=== PATIENT | female | born 1995 | race African-American/Black ===

== ENCOUNTER 2022-09-06 21:06 | Emergency (ER) | payer MEDICAID, SELFPAY ==
--- NOTE | ~2022-09-06 | CT_ITS ---
EXAMINATION: CTA chest PE protocol DATE: 09/07/2022 01:17 INDICATION: Chest pain and shortness of breath, tachycardia TECHNIQUE: Computed tomography angiography (CTA) of the chest was performed with 100 mL Omnipaque-350 intravenous contrast timed to evaluate the pulmonary arteries. Coronal maximum intensity projection 3D-reconstructions were created by the technologist. The dose-length product (DLP) was 525.15 mGy-cm. Automated exposure control and iterative reconstruction technique were employed. COMPARISON: None. FINDINGS: Respiratory motion artifact significantly degrades the examination. No central pulmonary em bolus is identified. Cardiomegaly is noted. No pleural effusion or pneumothorax. No definite airspace opacities are identified. The visualized osseous structures are unremarkable. A cardiac pacemaker is implanted in the left axilla with its lead coursing in the anterior chest wall overlying the heart. IMPRESSION: 1. No central pulmonary embolus identified, examination significantly limited by respiratory motion a rtifact. 2. Cardiomegaly. Reviewed, dictated and finalized at location A. TECH IMPRESSION: 1. No central pulmonary embolus identified, examination significantly limited b y respiratory motion artifact. 2. Cardiomegaly.
--- NOTE | ~2022-09-06 | XR_ITS ---
EXAMINATION: XR chest 1V DATE: 09/06/2022 22:06 INDICATION: Chest pain. TECHNIQUE: A single frontal view of the chest was obtained. COMPARISON: None. FINDINGS: There is no pneumonia, pleural effusion, or pneumothorax. Cardiomegaly is noted. An implant ed defibrillator is noted. IMPRESSION: 1. Cardiomegaly. Reviewed, dictated and finalized at location A. CELL TECHNICIAN IMPRESSION: 1. Cardiomegaly.
--- NOTE | 2022-09-06 21:12 | ECG_ITS ---
Measurements Intervals [place] Rate: 98 P: 56 WI: 156 QRS: 59 QRSD: 119 T: 45 QT: 340 QTc: 436 Interpretive Statements SINUS RHYTHM INCOMPLETE LEFT BUNDLE BRANCH BLOCK BORDERLINE ST-T WAVE ABNORMALITY- INF/LAT LEADS BASELINE ARTIFACT- I, II, AVR ABNORMAL ECG NO PREVIOUS ECG AVAILABLE FOR COMPARISON Electronically Signed On 09-07-2022 6:43:56 ASSOCIATE DIRECTOR FINANCIAL AID by Zeus Almazan D.O.
[2022-09-06 21:14] VITALS: BP 116/76; PULSE 99; RESP 18; TEMP 36.2; O2SAT 96
[2022-09-06 23:28] VITALS: PULSE 112; RESP 21; O2SAT 92
[2022-09-06 23:30] VITALS: PULSE 108; RESP 17; O2SAT 93
--- NOTE | 2022-09-06 23:37 | ED.CHESTPAIN ---
HPI - Chest Pain General Chief Complaint: Chest Pain <Zoe Caballero PA-C - Last Filed: 09/07/22 15:32> Stated Complaint: Chest pn x 2 days, NSR <Zoe Caballero PA-C - Last Filed: 09/07/22 15:32> Time Seen by Provider: 09/06/22 23:26 <Zoe Caballero PA-C - Last Filed: 09/07/22 15:32> History of Present Illness HPI narrative: Patient is a 27-year-old female with a history of -induced CHF here for evaluation of chest pain and shortness of breath for the past 2 days. Patient states the chest pain woke her up from her sleep 2 days ago and has been relatively constant since. She denies exertional component to her pain. Additionally notes acute shortness of breath, worse when she is exerting herself. Notes that her feet appear swollen x 2 days ago but this has improved. She saw her cardiology PA this morning who did not feel her symptoms were cardiac related and thought they were due to asthma. She was referred to pulmonology. Patient went home and attempted her inhaler without improvement so she came to ED. Has been compliant with her CHF medications including Bumex. No syncope, fevers or chills, nausea or vomiting, abdominal pain. No calf pain, history of DVT/PE, recent long trips or travel, OCP use. Patient follows with Dr. Lucille Mayer at [facility], cardiology. <Zoe Caballero PA-C - Last Filed: 09/07/22 15:32> Related Data Home Medications: Home Medications Medication Instructions Recorded Confirmed albuterol 90 mcg/actuation aerosol mcg inhalation 09/07/22 inhaler aripiprazole 10 mg tablet mg 09/07/22 budesonide-formoterol HFA 160 inhalation 09/07/22 mcg-4.5 mcg/actuation aerosol inhaler bumetanide 2 mg tablet mg 09/07/22 dapagliflozin 10 mg tablet mg 09/07/22 (Farxiga) digoxin 125 mcg (0.125 mg) tablet 09/07/22 empagliflozin 10 mg tablet mg 09/07/22 epinephrine 0.3 mg/0.3 mL 09/07/22 injection, auto-injector metoprolol succinate 50 mg mg PO 09/07/22 tablet,extended release 24 hr sacubitril 49 mg-valsartan 51 mg tablet 09/07/22 tablet <Zoe Caballero PA-C - Last Filed: 09/07/22 15:32> Allergies/Adverse Reactions: Allergies Allergy/AdvReac Type Severity Reaction Status Date / Time No Known Allergies Allergy Verified 09/06/22 21:18 <Zoe Caballero PA-C - Last Filed: 09/07/22 15:32> Review of Systems Review of Systems: Gen.: Denies fevers or chills Eyes: Denies eye pain or visual change ENT: Denies congestion Respiratory: Reports shortness of breath. CV: Reports chest pain. GI: Denies abdominal pain nausea, emesis or diarrhea denies burning, urgency, frequency or hematuria Musculoskeletal: Denies back pain or muscle pain Neuro: Denies numbness, tingling, weakness or focal weakness Skin: Denies rash Except as documented, all other systems reviewed and negative <Zoe Caballero PA-C - Last Filed: 09/07/22 15:32> Exam Narrative: APPEARANCE: Obese, tachypneic, uncomfortable appearing EYES: EOMI HEENT: Normocephalic, atraumatic, OMM RESPIRATORY: Expiratory wheezes noted throughout lung brooks. speaking in one word sentences. CARDIOVASCULAR: Tachycardic. Regular rhythm without murmurs rubs or gallops. ABDOMINAL: Soft, nontender, nondistended, no rebound or guarding MUSCULOSKELETAL: No edema noted. NEURO: Awake and alert. Following commands, speech normal, no focal deficits SKIN: Warm, dry. No rashes lesions or abrasions PSYCHIATRIC: Normal affect/mood <Zoe Caballero PA-C - Last Filed: 09/07/22 15:32> Course LINE PULLER/PA Physician Supervision For this patient encounter, I reviewed the LINE PULLER or PA documentation, treatment plan, and medical decision making <Main Guajardo MD - Last Filed: 09/07/22 19:02> Vital Signs Vital signs: Vital Signs Temperature 97.1 F L 09/06/22 21:14 Pulse Rate 99 11/11/22 21:14 Respiratory Rate 18 09/06/22 21:14 Blood Pressu
[2022-09-06 23:45] VITALS: PULSE 103; RESP 23; O2SAT 95
[2022-09-06 23:48] VITALS: BP 106/68; PULSE 106; RESP 42; O2SAT 92
[2022-09-06 23:57] VITALS: BP 106/68; PULSE 106; RESP 27; O2SAT 96
[2022-09-06 23:58] LABS: Basophils Absolute Auto 0.1 K/mm3 (0.0-0.1); Basophils Percent Auto 0.8 % (0.2-1.2); Eosinophils Absolute Auto 0.3 K/mm3 (0-0.3); Hematocrit 43.7 % (37.0-47.0); Hemoglobin 13.8 g/dL (12.0-15.0); Immature Granulocyte Absolute 0.04 K/mm3 (0.00-0.031); Immature Granulocyte Percent A 0.4 % (0-0.5); Lymphocytes Absolute Auto 4.18 K/mm3 (0.9-3.2); Lymphocytes Percent Auto 42.2 % (18.3-44.2); Mean Corpuscular HGB Conc 31.6 g/dl (32-36); Mean Corpuscular Hemoglobin 23.5 pg (26-34); Mean Corpuscular Volume 74.6 fl (80-100); Mean Platelet Volume 11.4 fl (7.4-10.4); Monocytes Absolute Auto 0.8 K/mm3 (0.1-0.6); Monocytes Percent Auto 8.1 % (2.6-8.5); Neutrophils Absolute Auto 4.5 K/mm3 (1.3-6.7); Neutrophils Percent Auto 45.5 % (45.5-73.1); Nucleated Red Blood Cells Perc 0.4 % (0.0-0.2); Platelet Count Result 460 k/mm3 (150-375); Red Blood Count 5.86 M/mm3 (4.2-5.4); Red Cell Distribution Width 21.8 % (11.5-14.5); White Blood Count 9.9 K/mm3 (4.5-10.0)
[2022-09-07] VITALS (27 sets, daily range): BP systolic 106–116; BP diastolic 62–83; PULSE 98–112; RESP 16–28; O2SAT 87–100
[2022-09-07] MEDS: ALBUTEROL SULFATE NEB 2.5 MG/3 ML INH 5 MG INHALATION (00:08)
[2022-09-07 00:09] LABS: INR 1.2; Partial Thromboplastin Time 31.3 SECONDS (22.3-36.8); Platelet Estimate Increased (Adequate); Prothrombin Time 14.8 Seconds (11.1-14.7)
[2022-09-07 00:10] LABS: Alanine Aminotransferase 16 U/L (6-35); Albumin Level 4.2 g/dL (3.5-5.1); Alkaline Phosphatase 95 U/L (38-126); Anion Gap 11 mmol/L (8-16); Anisocytosis 2+ (NORMAL); Aspartate Amino Transferase 19 U/L (14-36); Atypical Lymphocytes Present; Bilirubin,Total 0.8 mg/dL (0.2-1.3); Blood Urea Nitrogen 13 mg/dL (7-17); Calcium 9.3 mg/dL (8.4-10.2); Carbon Dioxide 32 mmol/L (22-30); Chloride 96 mmol/L (98-107); Estimated CRCL calculation 85 ml/min; Estimated Glomerular Filt Rate > 60; Glucose 172 mg/dL (65-110); Hypochromasia 1+ (NORMAL); Lipase 64 U/L (23-300); Microcytosis 1+ (NORMAL); Potassium 3.7 mmol/L (3.4-5.0); Schistocytes None Seen (NORMAL); Sodium 139 mmol/L (137-145); Stomatocytes 1+ (NORMAL); Target Cells 1+ (NORMAL)
[2022-09-07 00:22] LABS: Troponin I 0.022 ng/mL (0.000-0.034)
[2022-09-07 00:34] LABS: Influenza A QL RT-PCR Negative (Negative); Influenza B QL RT-PCR Negative (Negative); SARS-CoV-2 RNA PCR Negative
[2022-09-07 00:44] LABS: NT Pro B Type Natriuretic Pept 7080 pg/mL (5-100)
--- NOTE | 2022-09-07 00:57 | PC.NURSE ---
Patient taken to CT at this time.
[2022-09-07] MEDS: ASPIRIN 81 MG CHEWABLE TABLET 324 MG PO (01:22)
--- NOTE | 2022-09-07 01:24 | PC.NURSE ---
Patient placed in 2L via NC since RA O2 dipped down to 87%. ERP notified.
[2022-09-07 02:09] LABS: Alveolar/Arterial O2 Gradient 75.1 mmHg; Base Excess ABG 5.9 mEq/l (+/-2.0); Fractional Inspired Oxygen 28 %; HCO3 ABG 30.3 mEq/l (22.0-26.0); Oxygen Content ABG 18.6 %vol (16.0-22.0); Oxygen Saturation ABG 95.6 % (95.0-100.0); PCO2 ABG 42.8 mmHg (35.0-45.0); PO2 FiO2 Ratio Arterial Blood 2.64 %; Total Hemoglobin 14.2 g/dL (12.0-18.0); pH ABG 7.468 (7.350-7.450)
[2022-09-07 02:13] LABS: Device NASAL CANNULA; Modified Allen's Test Pass; Site Drawn RIGHT RADIAL
[2022-09-07] MEDS: predniSONE 20 MG TABLET 40 MG PO (03:29)
[2022-09-07] MEDS: MAGNESIUM SULF 2 GM/WATER 50ML 2 GM/50 ML BAG IVPB (03:32)
== END 2022-09-07 04:25 | disposition home or self-care (01) ==
PROVIDERS: Physician Assistant; Emergency Provider Emergency Medicine
DX: J45.901 Unspecified asthma with (acute) exacerbation (principal); Z20.822 Contact with and (suspected) exposure to COVID-19; O99.43 Diseases of the circulatory system complicating the puerperium; I50.9 Heart failure, unspecified; I44.7 Left bundle-branch block, unspecified; R94.31 Abnormal electrocardiogram [ECG] [EKG]; I51.7 Cardiomegaly; Z95.0 Presence of cardiac pacemaker
CPT/HCPCS: 36415; 36600; 71045; 71275; 80053; 81025; 82805; 83690; 83880; 84484; 85025; 85610; 85730; 87502; 93005; 94640; 96365; 99284; A9270; J3475; J7512; Q9967; U0003; U0005

== ENCOUNTER 2022-10-11 02:28 | Inpatient (IN) | payer MEDICAID, SELFPAY ==
[2022-10-11] VITALS (13 sets, daily range): BP systolic 107–148; BP diastolic 56–93; PULSE 85–104; RESP 16–26; TEMP 35.7–36.4; O2SAT 95–100
--- NOTE | ~2022-10-11 | XR_ITS ---
EXAMINATION: XR chest 2V DATE: 10/11/2022 03:13 INDICATION: Shortness of breath. Cough. TECHNIQUE: Frontal and lateral views of the chest were obtained. COMPARISON: Chest single view 09/06/2022, chest CT 09/07/2022 FINDINGS: There is mild atelectasis at left lung base. No pleural effusion or pneumothorax. Cardiomeg maral is noted. There is an implanted defibrillator in anterior body wall. IMPRESSION: 1. Mild atelectasis at left lung base. 2. Cardiomegaly. Reviewed, dictated and finalized at location A. EL RIB MATTING MACHINE OPERATOR
--- NOTE | ~2022-10-11 | CT_ITS ---
EXAMINATION: CT abdomen pelvis wo con DATE: 10/14/2022 17:46 INDICATION: Generalized abdominal pain, vomiting TECHNIQUE: Computed tomography (CT) of the abdomen and pelvis was performed without intravenous contr ast. Automated exposure control and iterative reconstruction technique were employed. Exam dose: 152 6.04 mGy-cm total exam DLP. COMPARISON: None. FINDINGS: There is mild discoid atelectasis or scarring in the lower lung zones. There is a generator device in the lower left lateral chest wall with lead extending along the left a nterior chest wall There is cardiomegaly. No pericardial or pleural effusion. The liver, gallbladder, bile ducts, spleen, pancreas, bile ducts and pancreatic ducts are unremarkabl e. Normal morphology of the adrenal glands. No renal mass lesion is evident on this limited noncontrast examination. No ureteral calculus or hydr oureteronephrosis is evident. Normal appendix. No bowel obstruction, bowel wall thickening, pneumatosis or intraperitoneal free air . Small fat-containing umbilical hernia. Normal appendix. No bowel obstruction, bowel wall thickening, pneumatosis or intraperitoneal free air . Bilateral L5 pars intra-articular is defects. No suspicious osteolytic or osteoblastic lesions. There is an 11 mm nodular soft tissue density of the right breast of uncertain significance. IMPRESSION: Normal appendix. No evidence of bowel obstruction Cardiomegaly Bilateral L5 pars interarticularis defects Nonspecific 11 mm nodular density of right breast; breasts are incompletely imaged. Reviewed, dictated and finalized at Location A. Reviewed, dictated and finalized at location A. OR ORACLE DATABASE DEVELOPER IMPRESSION: Normal appendix. No evidence of bowel obstruction Cardiomegaly Bilateral L5 pars interarticularis defects Nonspecific 11 mm nodular density of right breast; breasts are incompletely hayley ged.
--- NOTE | ~2022-10-11 | CT_ITS ---
EXAMINATION: CTA chest PE protocol DATE: 10/12/2022 18:07 INDICATION: Dorsal breath. COVID positive. TECHNIQUE: Computed tomography (CT) pulmonary angiogram of the chest was performed with 100 mL Omnipa que-350 intravenous contrast. Additional 3D reconstructions utilizing coronal maximum intensity proje ction (MIP) were performed. Automated exposure control and iterative reconstruction technique were em ployed. The dose-length product was 1041.37 mGy-cm. COMPARISON: None/10/17 FINDINGS: Good contrast opacification of the pulmonary arteries. There is moderate streak artifact from dense c ontrast in the superior vena cava and right atrium as well as a likely subcutaneous cardiac pacemaker device at the lateral lower chest wall with lead in the left parasternal subcutaneous fat. Moderate respiratory motion most prominent at the lower lung zones. Together this renders evaluation essential ly nondiagnostic in the segmental and subsegmental pulmonary arteries in the right middle lobe and ba silar right lower lobe and significantly decreases sensitivity in many of the subsegmental pulmonary arteries throughout the remainder of the lungs. No central pulmonary embolism identified. There is en largement of the central pulmonary arteries consistent with pulmonary arterial hypertension. Mild mos aic attenuation in the dependent upper lobes without evidence of Thickening suggesting mild atelectasis with subsegmental regions of air trapping related to small air way disease although differential would include COVID pneumonia. No more dense airspace consolidation , pulmonary edema or pleural effusion. Moderate to severe cardiomegaly. No pericardial effusion. Thor acic aorta is normal in caliber. No pathologically enlarged thoracic lymphadenopathy. Mild thoracic s pondylosis. IMPRESSION: 1. No central pulmonary embolism with assessment in the subsegmental pulmonary arteries in the right middle and lower lobar basilar segmental pulmonary arteries significantly limited by combination of m otion and streak artifact. 2. Unchanged moderate to severe cardiomegaly with enlargement of the central pulmonary arteries consi stent with pulmonary arterial hypertension. 3. Mild mosaic attenuation in the upper lungs most likely atelectasis with subsegmental regions of ai r trapping related to small airway disease in patient with known history of asthma. Differential woul d include COVID pneumonia. Reviewed, dictated and finalized at location A. PUNCHER IMPRESSION: 1. No central pulmonary embolism with assessment in the subsegmental pulmonary arteries in the right middle and lower lobar basilar segmental pulmonary arteri es significantly limited by combination of motion and streak artifact. 2. Unchanged moderate to severe cardiomegaly with enlargement of the central pu lmonary arteries consistent with pulmonary arterial hypertension. 3. Mild mosaic attenuation in the upper lungs most likely atelectasis with subs egmental regions of air trapping related to small airway disease in patient wit h known history of asthma. Differential would include COVID pneumonia.
--- NOTE | ~2022-10-11 | US_ITS ---
EXAMINATION: US venous doppler [facility] DATE: 10/12/2022 10:56 INDICATION: Bilateral lower limb swelling TECHNIQUE: Ross scale images without and with compression and Doppler images of the bilateral lower e xtremity veins were obtained. COMPARISON: None FINDINGS: The right common femoral vein, profunda femoral vein, femoral vein, popliteal vein, peroneal trunk, p osterior tibial veins, and greater saphenous vein are patent. The left common femoral vein, profunda femoral vein, femoral vein, popliteal vein, peroneal trunk, po sterior tibial veins, and greater saphenous vein are patent. IMPRESSION: 1. Patent bilateral lower extremity veins. No evidence of deep venous thrombosis. Reviewed, dictated and finalized at location A. OR SQL DEVELOPER IMPRESSION: 1. Patent bilateral lower extremity veins. No evidence of deep venous thrombosi s.
--- NOTE | 2022-10-11 02:30 | ECG_ITS ---
Measurements Intervals [place] Rate: 117 P: 50 CO: 158 QRS: 61 QRSD: 114 T: 24 QT: 370 QTc: 518 Interpretive Statements SINUS TACHYCARDIA POSSIBLE RIGHT ATRIAL ENLARGEMENT [0.25mV P WAVE] POSSIBLE LEFT ATRIAL ENLARGEMENT [-0.1mV P WAVE IN V1/V2] INDETERMINATE AXIS INCOMPLETE LEFT BUNDLE BRANCH BLOCK ABNORMAL RHYTHM ECG COMPARED TO ECG 09/06/2022 21:17:17 HEART RATE IS INCREASED NO OTHER DIFFERENCE Electronically Signed On 10-11-2022 10:20:00 [employer] FR[employer] PACKER by Shukri Zamarripa M.D.
[2022-10-11 03:07] LABS: Basophils Percent Auto 0.3 % (0.2-1.2); Eosinophils Percent Auto 0.2 % (0-4.4); Hematocrit 47.6 % (37.0-47.0); Hemoglobin 15.4 g/dL (12.0-15.0); Immature Granulocyte Absolute 0.09 K/mm3 (0.00-0.031); Immature Granulocyte Percent A 0.6 % (0-0.5); Immature Platelet Fraction Pct 9.9 % (0.9-11.2); Lymphocytes Absolute Auto 4.86 K/mm3 (0.9-3.2); Lymphocytes Percent Auto 34.4 % (18.3-44.2); Mean Corpuscular HGB Conc 32.4 g/dl (32-36); Mean Corpuscular Hemoglobin 23.4 pg (26-34); Mean Corpuscular Volume 72.2 fl (80-100); Monocytes Absolute Auto 0.9 K/mm3 (0.1-0.6); Monocytes Percent Auto 6.4 % (2.6-8.5); Neutrophils Absolute Auto 8.2 K/mm3 (1.3-6.7); Neutrophils Percent Auto 58.1 % (45.5-73.1); Nucleated Red Blood Cells Absolute Auto 0.1 K/mm3 (0.0-0.012); Nucleated Red Blood Cells Perc 0.6 % (0.0-0.2); Platelet Count Result 312 k/mm3 (150-375); Red Blood Count 6.59 M/mm3 (4.2-5.4); Red Cell Distribution Width 22.5 % (11.5-14.5); White Blood Count 14.1 K/mm3 (4.5-10.0)
[2022-10-11 03:45] LABS: Alanine Aminotransferase 30 U/L (6-35); Albumin Level 4.4 g/dL (3.5-5.1); Alkaline Phosphatase 67 U/L (38-126); Anion Gap 9 mmol/L (8-16); Aspartate Amino Transferase 28 U/L (14-36); Bilirubin,Total 1.1 mg/dL (0.2-1.3); Blood Urea Nitrogen 31 mg/dL (7-17); Calcium 9.2 mg/dL (8.4-10.2); Carbon Dioxide 28 mmol/L (22-30); Chloride 98 mmol/L (98-107); Estimated Glomerular Filt Rate 59; Glucose 221 mg/dL (65-110); Sodium 135 mmol/L (137-145)
[2022-10-11 03:48] LABS: Anisocytosis 1+ (NORMAL); Hypochromasia 1+ (NORMAL); Platelet Estimate Adequate (Adequate)
[2022-10-11 03:49] LABS: Macrocytosis 1+ (NORMAL); Microcytosis 1+ (NORMAL); Poikilocytosis 1+ (NORMAL)
[2022-10-11 03:50] LABS: Rouleaux 1+ (NORMAL); Stomatocytes 1+ (NORMAL)
[2022-10-11 03:51] LABS: Schistocytes None Seen (NORMAL)
--- NOTE | 2022-10-11 11:19 | ED.GENADULT ---
HPI - General Adult General Chief complaint: Shortness of Breath/Dyspnea Stated complaint: sob Time Seen by Provider: 10/11/22 08:11 History of Present Illness HPI narrative: 27-year-old female with a past medical history of CHF, asthma who was recently diagnosed with COVID 2 weeks prior to arrival presents to our department with a constant, wet cough and shortness of breath. Patient was seen at outside hospital and told it was asthma related to allergies. She has been taking Symbicort and albuterol with minimal relief. She denies fever. Related Data Home Medications Medication Instructions Recorded Confirmed aripiprazole 10 mg tablet 10 mg PO DAILY 09/07/22 10/11/22 budesonide-formoterol HFA 160 2 puff inhalation DAILY 09/07/22 10/11/22 mcg-4.5 mcg/actuation aerosol inhaler bumetanide 2 mg tablet 2 mg PO DAILY 09/07/22 10/11/22 digoxin 125 mcg (0.125 mg) tablet 125 mcg PO DAILY 09/07/22 10/11/22 epinephrine 0.3 mg/0.3 mL 09/07/22 injection, auto-injector metoprolol succinate 50 mg 50 mg PO DAILY 09/07/22 10/11/22 tablet,extended release 24 hr sacubitril 49 mg-valsartan 51 mg 1 tablet PO DAILY 09/07/22 10/11/22 tablet empagliflozin 25 mg tablet 25 mg PO DAILY 10/11/22 10/11/22 (Jardiance) montelukast 10 mg tablet 10 mg PO DAILY 10/11/22 10/11/22 (Singulair) spironolactone 25 mg tablet 25 mg PO DAILY 10/11/22 10/11/22 trazodone 50 mg tablet 50 mg PO HS 10/11/22 10/11/22 Allergies Allergy/AdvReac Type Severity Reaction Status Date / Time bee venom protein (honey bee) Allergy Swelling Verified 10/11/22 16:25 [bees] dog dander Allergy Dyspnea / Verified 10/11/22 16:25 SOB mushroom Allergy Swelling Verified 10/11/22 16:25 Review of Systems Review of Systems: CONSTITUTIONAL: Denies fever, chills, or sweats. EYES: Denies visual changes, redness, or discharge. ENT: Denies rhinorrhea, congestion, sore throat, or otalgia. CARDIOVASCULAR: Denies chest pain, palpitations, or edema. RESPIRATORY: Denies cough or dyspnea. GASTROINTESTINAL: Denies abdominal pain, nausea, vomiting, or diarrhea. GENITOURINARY: Denies dysuria or hematuria. SKIN: Denies rash or itching. MUSCULOSKELETAL: Denies back pain, joint pain, or myalgia. NEUROLOGIC: Denies headache, numbness, or weakness. PSYCHIATRIC: Denies anxiety or depression. [facility] Past Medical History Medical History (Updated 10/11/22 @ 18:48 by Luciana Pastrana NP) Cardiac defibrillator in situ Congestive heart failure DM2 (diabetes mellitus, type 2) Surgical History Surgical History (Updated 10/11/22 @ 13:52 by Luciana Pastrana NP) H/O section times 2 Family History Family History (Updated 10/11/22 @ 13:53 by Luciana Pastrana NP) Father Diabetes mellitus Mother Diabetes mellitus Sibling Diabetes mellitus Social History Social History (Updated 10/11/22 @ 13:53 by Luciana Pastrana NP) Social History: sister 2 c Years smoked: 8 Smoking status: Former smoker Alcohol intake: never Substance use: never Substance use type: does not use Lack of Transportation: YES Lack of Food: Never True Current Housing: I Have Housing Concerned About Future Housing: No Difficulty Paying Gas/Electric Bills: No Difficulty Paying for Meds: No Currently Unemployed: No Education: Associate Degree Difficulty w/ Childcare or Family Care: No Spiritual care concerns: No Exam Narrative: GENERAL: Well-appearing, well-nourished, and in no acute distress. Morbidly obese, diaphoretic HEAD: Normocephalic, atraumatic. EYES: PERRLA and EOMI. ENT: Nares clear, no rhinorrhea or epistaxis. Mucous membranes moist. NECK: Supple. CHEST: End expiratory wheeze HEART: Regular rate and rhythm. No murmur heard. Normal peripheral pulses. ABDOMEN: Soft, nontender, nondistended, normal active bowel sounds. EXTREMITIES: Normal range of motion. No edema. SKIN: Warm, dry, no rash. NEURO: No focal deficits. Alert and janet
[2022-10-11] MEDS: ALBUTEROL SULFATE NEB 2.5 MG/3 ML INH 5 MG INHALATION (11:36)
[2022-10-11 11:55] LABS: Glucose Point of Care 349 mg/dl (65-105)
[2022-10-11] MEDS: DEXAMETHASONE 2 MG TABLET 12 MG PO (12:12)
[2022-10-11 12:54] LABS: NT Pro B Type Natriuretic Pept 10500 pg/mL (5-100)
[2022-10-11] MEDS: FUROSEMIDE INJ 40 MG/4 ML VIAL IV PUSH (13:24)
--- NOTE | 2022-10-11 13:45 | PC.NURSE ---
Dr. Dumont made aware of POC glucose x2. Pt states she takes insulin for her diabetes but she is unsure of what kind of dose she takes.
--- NOTE | 2022-10-11 13:51 | PM.IMHP ---
H&P: HPI History of Present Illness Date/Time: 10/11/22 13:51 Chief Complaint: Shortness of breath Narrative: This is a 27-year-old female patient who has a history of CHF and was diagnosed with COVID 2 weeks ago. The patient had a constant went cough and shortness of breath since then. She was seen at a outside hospital and was told it was asthma related to allergies. The patient has been using Symbicort and albuterol with minimal relief. She denies any fever chills at this time. Chest x-ray was read as mild atelectasis at left lung base. Cardiomegaly. The patient had previously been on prednisone and her white count is 14.1. H&H is 15.4 and 47.6. Sodium 135. BUN 31 creatinine 1.3. Blood [place] [address]. Patient's influenza a and B urine negative but her COVID was positive. The patient is require oxygen at 2 L per nasal cannula. The patient was given albuterol treatment, Decadron, and IV Lasix in the emergency room. The patient is being admitted to observation status on the date of service of 10/11/2022. Review of Systems Review of Systems: See HPI All systems reviewed & are unremarkable except as noted in HPI and below Constitutional: Constitutional: Reports as per HPI and Reports no additional constitutional complaints Eyes: Eyes: Reports as per HPI and Reports no additional eye complaints ENT: Reports system reviewed and no additional complaints, except as documented and Reports Normal hearing present Cardiovascular: Cardiovascular: Reports no additional cardiovascular complaints Respiratory: Respiratory: Reports no additional respiratory complaints and Reports no additional respiratory complaints Gastrointestinal: Gastrointestinal: Reports as per HPI and Reports no additional gastrointestinal complaints Musculoskeletal: Musculoskeletal: Reports no additional musculoskeletal complaints Integumentary/Breasts: Skin/Breast: Reports system reviewed and no additional complaints, except as docu and Reports as per HPI Neurologic: Reports system reviewed and no additional complaints, except as documented, Reports as per HPI and Reports Normal hearing present Psychiatric: Psychiatric: Reports no additional psychiatric complaints and Reports as per HPI Endocrine: Endocrine: Reports no additional endocrine complaints Hematologic/Lymphatic: Hematologic/Lymphatic: Reports no additional hematologic/lymphatic complaints Allergic/Immunologic: Allergic/Immunologic: Reports no additional allergic/immunologic complaints [facility] Past Medical History Medical History (Updated 10/11/22 @ 19:49 by Luciana Pastrana NP) Cardiac defibrillator in situ Congestive heart failure Depression with anxiety DM2 (diabetes mellitus, type 2) Surgical History Surgical History (Updated 10/11/22 @ 13:52 by Luciana Pastrana NP) H/O section times 2 Family History Family History (Updated 10/11/22 @ 13:53 by Luciana Pastrana NP) Father Diabetes mellitus Mother Diabetes mellitus Sibling Diabetes mellitus Social History Social History (Updated 10/11/22 @ 18:55 by Luciana Pastrana NP) Social History: The patient lives with her sister and she has 2 children. She is a former smoker. She denies any alcohol marijuana or illicit drugs. Her sister is a durable power staff attorney for healthcare. She is single and she is disabled. Code status full code Years smoked: 8 Smoking status: Former smoker Alcohol intake: never Substance use: never Substance use type: does not use Lack of Transportation: YES Lack of Food: Never True Current Housing: I Have Housing Concerned About Future Housing: No Difficulty Paying Gas/Electric Bills: No Difficulty Paying for Meds: No Currently Unemployed: No Education: Associate Degree Difficulty w/ Childcare or Family Care: No Spiritual care concerns: No Meds Home Medications and Allergies Home Medications Medication Instruction
[2022-10-11 14:30] LABS: Influenza A QL RT-PCR Negative (Negative); Influenza B QL RT-PCR Negative (Negative); SARS-CoV-2 RNA PCR Positive
--- NOTE | 2022-10-11 16:17 | ADMGEN ---
This patient, Giovanna Mcgarry, was admitted to 3 [facility] Surg Room 320-01. Patient/family oriented to hospital policies and general routines including ID bracelet, bed and alarms, visiting hours, pain management, procedures, bathroom and other care routines, personal items, smoking policy, room service/diet, and visiting hours. Information on how to activate the Rapid Response Team has been discussed. Patient/Family are encouraged to report perceived risks to care and to ask questions if they do not understand what they are told or what they should do.
[2022-10-11 17:26] LABS: Glucose Point of Care 375 mg/dl (65-105)
[2022-10-11] MEDS: INSULIN ASPART (*BKC) 100 UNITS/ML 6 UNITS SUB-Q ×2 (18:13→20:22)
[2022-10-11 19:43] LABS: Hemoglobin A1C 9.2 % (<5.7)
[2022-10-11 19:45] LABS: Beta HCG Quantitative < 2.39 mIU/ML
[2022-10-11] MEDS: traZODone HCL 50 MG TABLET PO (20:12)
[2022-10-11] MEDS: INSULIN GLARGINE (*BKC) 100 UNITS/ML 14 UNITS SUB-Q (20:12)
[2022-10-11 22:02] LABS: Glucose Point of Care 346 mg/dl (65-105)
[2022-10-12] VITALS (11 sets, daily range): BP systolic 100–113; BP diastolic 58–68; PULSE 85–112; RESP 18–20; TEMP 35.6–36.4; O2SAT 94–100
--- NOTE | 2022-10-12 04:23 | PC.NURSE ---
Pt resting in bed. Pt had elevated blood sugar treated with 6 units novolog. Pt has no complaints at this time. Pt participated and contributed in plan of care. Will continue to monitor pt.
[2022-10-12 06:47] LABS: Basophils Percent Auto 0.1 % (0.2-1.2); Hematocrit 42.6 % (37.0-47.0); Hemoglobin 14.2 g/dL (12.0-15.0); Immature Granulocyte Percent A 0.6 % (0-0.5); Immature Platelet Fraction Pct 10.6 % (0.9-11.2); Lymphocytes Absolute Auto 1.33 K/mm3 (0.9-3.2); Lymphocytes Percent Auto 8.4 % (18.3-44.2); Mean Corpuscular HGB Conc 33.3 g/dl (32-36); Mean Corpuscular Hemoglobin 23.4 pg (26-34); Mean Corpuscular Volume 70.2 fl (80-100); Monocytes Absolute Auto 0.5 K/mm3 (0.1-0.6); Monocytes Percent Auto 2.8 % (2.6-8.5); Neutrophils Percent Auto 88.1 % (45.5-73.1); Nucleated Red Blood Cells Perc 0.2 % (0.0-0.2); Platelet Count Result 250 k/mm3 (150-375); Red Blood Count 6.07 M/mm3 (4.2-5.4); Red Cell Distribution Width 21.9 % (11.5-14.5); White Blood Count 15.9 K/mm3 (4.5-10.0)
[2022-10-12 06:58] LABS: Alanine Aminotransferase 29 U/L (6-35); Albumin Level 4.2 g/dL (3.5-5.1); Alkaline Phosphatase 68 U/L (38-126); Anion Gap 8 mmol/L (8-16); Aspartate Amino Transferase 22 U/L (14-36); Bilirubin,Total 0.7 mg/dL (0.2-1.3); Blood Urea Nitrogen 31 mg/dL (7-17); Calcium 9.6 mg/dL (8.4-10.2); Carbon Dioxide 27 mmol/L (22-30); Chloride 101 mmol/L (98-107); Estimated Glomerular Filt Rate > 60; Glucose 292 mg/dL (65-110); Magnesium 1.9 mg/dL (1.6-2.3); Potassium 4.3 mmol/L (3.4-5.0); Sodium 136 mmol/L (137-145)
[2022-10-12 08:41] LABS: Anisocytosis 1+ (NORMAL); Platelet Estimate Adequate (Adequate); Schistocytes None Seen (NORMAL); Target Cells 2+ (NORMAL)
[2022-10-12 09:07] LABS: Thyroid Stimulating Hormone Reflex 0.937 uIU/mL (0.465-4.68)
[2022-10-12 09:09] LABS: Glucose Point of Care 266 mg/dl (65-105)
[2022-10-12] MEDS: FLUTICASONE/SALMETEROL 115-21 MCG INHALER 1 PUFF 2 PUFF INHALATION ×2 (09:20→20:37)
[2022-10-12] MEDS: DIGOXIN TAB 125 MCG TABLET PO (09:23)
[2022-10-12] MEDS: SPIRONOLACTONE 25 MG TABLET PO (09:23)
[2022-10-12] MEDS: SACUBITRIL/VALSARTAN 49-51 MG TABLET 1 TABLET PO (09:23)
[2022-10-12] MEDS: METOPROLOL SUCCINATE EXT REL 50 MG TABCR PO (09:23)
[2022-10-12] MEDS: ARIPiprazole 10 MG TABLET PO (09:23)
[2022-10-12] MEDS: MONTELUKAST SODIUM 10 MG TABLET PO (09:23)
[2022-10-12] MEDS: EMPAGLIFLOZIN 25 MG TABLET PO (09:23)
[2022-10-12] MEDS: BUMETANIDE INJ 1 MG/4 ML VIAL IV PUSH (09:24)
[2022-10-12] MEDS: ENOXAPARIN 40 MG/0.4 ML SYRINGE SUB-Q (09:24)
[2022-10-12] MEDS: INSULIN ASPART (*BKC) 100 UNITS/ML SUB-Q ×3 (09:24→17:02)
[2022-10-12 12:20] LABS: Glucose Point of Care 273 mg/dl (65-105)
--- NOTE | 2022-10-12 14:36 | PM.IMPN ---
Progress Note: A&P Assessment and Plan (1) COVID: Code(s): U07.1 - COVID-19 Status: Acute Assessment and Plan: -The patient was diagnosed over week ago and continues to be positive. -continue with Decadron and albuterol -wean 02 -CTA ordered -xray no evidence of infection but will get a CT to further evaluate. This is likely a asthma exacerbation but if CTA comes back with possible infection there is a low threshold for starting abx -obtain sputum culture (2) Asthma with exacerbation: Code(s): J45.901 - Unspecified asthma with (acute) exacerbation Status: Acute Assessment and Plan: Pt continues to wheeze -Continue inhalers and Decadron (3) DM2 (diabetes mellitus, type 2): Code(s): E11.9 - Type 2 diabetes mellitus without complications Status: Acute Assessment and Plan: Last glucose 273 -A1c 9.2--uncontrolled -Continue jardiance, lantus and SSI, may need scheduled insulin -pt not on home insulin, will need at least lantus at discharge -she has no PCP or kaiako k[place]anga reo and will need referrals at discharge (4) Congestive heart failure: Code(s): I50.9 - Heart failure, unspecified Status: Acute Assessment and Plan: Chronic -continue entresto, jardiance, bumex, metoprolol, dignoxin, and spironolactone -ICD in place (5) Cardiac defibrillator in situ: Code(s): Z95.810 - Presence of automatic (implantable) cardiac defibrillator Status: Acute Assessment and Plan: -chronic (6) Depression with anxiety: Code(s): F41.8 - Other specified anxiety disorders Status: Acute Assessment and Plan: Chronic and stable -Continue abilify (7) Leukocytosis: Code(s): D72.829 - Elevated white blood cell count, unspecified Status: Acute Assessment and Plan: Pt has significant leukocytosis with body aches/night sweats -obtain UA, blood cultures, chest CT -consider adding abx depending on above -check CK d/t diffuse myalgias -was on steroids outpt, could be a factor. Time Spent With Patient Time with patient: 25 - 35 minutes Subjective Date/time seen: 10/12/22 14:36 Interval history: Pt is a 27-year-old female here for shortness of breath. Patient states that she does not have much shortness of breath at rest but notices she has dyspnea on exertion. She continues to have a constant wet cough as well and is producing yellow sputum with diffuse muscle aches. She has no chest pain but admits to dysuria as well. We had a long discussion about diabetes and she states that she does not have a primary care physician or an kaiako kohanga reo but is agreeable to see 1 after discharge. Review of Systems Review of Systems: All systems reviewed & are unremarkable except as noted in HPI and below Exam Narrative: General: Morbidly obese patient resting comfortably in bed in no acute distress HEENT: normocephalic Neck: supple Neuro: Alert and oriented x4 CV: Slightly tachycardic rate 108 Resp: Wheezing noted bilaterally Abd: Soft, non distended. No pain to palpation. Positive bowel sounds Extremities: No swelling, erythema, or pain to palpation. Objective Data Vital Signs Vital Signs: Vital Signs - 24 hr 10/11/22 15:10 10/11/22 15:48 10/11/22 17:43 Temperature Pulse Rate 101 H 94 Respiratory Rate 16 16 Blood Pressure 114/73 114/73 Pulse Oximetry 96 100 95 Oxygen Delivery Room Air 10/11/22 16:23 10/11/22 20:02 10/12/22 00:04 Temperature Pulse Rate 99 102 H 101 H Respiratory Rate Blood Pressure Pulse Oximetry Oxygen Delivery 10/12/22 00:04 10/12/22 04:02 10/11/22 22:00 Temperature 96.2 F L Pulse Rate 101 H 112 H 101 H Respiratory Rate 20 Blood Pressure 111/87 Pulse Oximetry 100 Oxygen Delivery 10/12/22 06:00 10/12/22 09:23 10/12/22 09:23 Temperature 96.1 F L Pulse Rate 103 H 103 H 103 H Respiratory Rat
[2022-10-12 16:42] LABS: Glucose Point of Care 243 mg/dl (65-105)
[2022-10-12 17:33] LABS: Add Urine Microscopic? YES; Appearance Urine Slightly Cloudy (Clear); Bilirubin Urine Negative (Negative); Blood Urine Negative (Negative); Color Urine Light Yellow (Yellow); Glucose Urine UA 3+ mg/dL (Negative); Ketones Urine Negative (Negative); Leukocyte Esterase Ur Negative LEU/UL (Negative); Nitrate Urine Negative (Negative); Protein Urine Negative (Negative); Specific Grav Ur <= 1.005 (1.001-1.035); Urobilinogen Urine 0.2 mg/dL (<2.0)
[2022-10-12 17:47] LABS: Bacteria Urine Trace /hpf; Mucus Urine Rare /lpf; RBC Urine 0-2 /hpf (0-2); Squamous Epithelial Cell Urine Rare /hpf (Few); WBC Urine 0-3 /hpf
[2022-10-12] MEDS: INSULIN GLARGINE (*BKC) 100 UNITS/ML 14 UNITS SUB-Q (21:13)
[2022-10-12] MEDS: traZODone HCL 50 MG TABLET PO (21:15)
[2022-10-12 23:22] LABS: Glucose Point of Care 234 mg/dl (65-105)
[2022-10-13] VITALS (14 sets, daily range): BP systolic 100–107; BP diastolic 58–75; PULSE 47–102; RESP 18–20; TEMP 35.6–36.6; O2SAT 96–97
[2022-10-13 02:22] LABS: Glucose Point of Care 216 mg/dl (65-105)
[2022-10-13] MEDS: ACETAMINOPHEN 500 MG TABLET 1000 MG PO (02:25)
[2022-10-13 08:01] LABS: Hemoglobin 14.2 g/dL (12.0-15.0); Immature Platelet Fraction Pct 11.8 % (0.9-11.2); Mean Corpuscular HGB Conc 31.6 g/dl (32-36); Mean Corpuscular Hemoglobin 23.4 pg (26-34); Mean Corpuscular Volume 74.1 fl (80-100); Platelet Count Result 274 k/mm3 (150-375); Red Blood Count 6.07 M/mm3 (4.2-5.4); Red Cell Distribution Width 22.5 % (11.5-14.5); White Blood Count 18.7 K/mm3 (4.5-10.0)
[2022-10-13 08:17] LABS: Anion Gap 7 mmol/L (8-16); Blood Urea Nitrogen 35 mg/dL (7-17); Calcium 9.6 mg/dL (8.4-10.2); Carbon Dioxide 27 mmol/L (22-30); Chloride 100 mmol/L (98-107); Creatine Kinase 30 U/L (30-135); Estimated Glomerular Filt Rate > 60; Glucose 209 mg/dL (65-110); Sodium 134 mmol/L (137-145)
[2022-10-13 08:20] LABS: Glucose Point of Care 222 mg/dl (65-105)
[2022-10-13] MEDS: EMPAGLIFLOZIN 25 MG TABLET PO (09:00)
[2022-10-13] MEDS: MONTELUKAST SODIUM 10 MG TABLET PO (09:00)
[2022-10-13] MEDS: ENOXAPARIN 40 MG/0.4 ML SYRINGE SUB-Q (09:01)
[2022-10-13] MEDS: SACUBITRIL/VALSARTAN 49-51 MG TABLET 1 TABLET PO (09:01)
[2022-10-13] MEDS: ARIPiprazole 10 MG TABLET PO (09:01)
[2022-10-13] MEDS: SPIRONOLACTONE 25 MG TABLET PO (09:01)
[2022-10-13] MEDS: DIGOXIN TAB 125 MCG TABLET PO (09:01)
[2022-10-13] MEDS: BUMETANIDE 1 MG TABLET 2 MG PO (09:02)
[2022-10-13] MEDS: METOPROLOL SUCCINATE EXT REL 50 MG TABCR PO (09:02)
[2022-10-13] MEDS: INSULIN ASPART (*BKC) 100 UNITS/ML SUB-Q ×3 (09:02→17:58)
[2022-10-13] MEDS: FLUTICASONE/SALMETEROL 115-21 MCG INHALER 1 PUFF 2 PUFF INHALATION ×2 (09:37→21:17)
[2022-10-13 12:32] LABS: Glucose Point of Care 273 mg/dl (65-105)
--- NOTE | 2022-10-13 13:44 | PM.IMPN ---
Progress Note: A&P Assessment and Plan (1) COVID: Code(s): U07.1 - COVID-19 Status: Acute Assessment and Plan: -The patient was diagnosed over week ago and continues to be positive. -continue with Decadron and albuterol -wean 02 in currently off -CTA with no PE. Findings of most psych attenuation suggestive of small airway disease. Sputum culture pending (2) Asthma with exacerbation: Code(s): J45.901 - Unspecified asthma with (acute) exacerbation Status: Acute Assessment and Plan: Pt continues to wheeze -Continue inhalers and Decadron (3) DM2 (diabetes mellitus, type 2): Code(s): E11.9 - Type 2 diabetes mellitus without complications Status: Acute Assessment and Plan: Last glucose 273 -A1c 9.2--uncontrolled -Continue jardiance, lantus and SSI, may need scheduled insulin -pt not on home insulin, will need at least lantus at discharge -she has no PCP or perforator operator oil well and will need referrals at discharge (4) Congestive heart failure: Code(s): I50.9 - Heart failure, unspecified Status: Acute Assessment and Plan: Chronic -continue entresto, jardiance, bumex, metoprolol, dignoxin, and spironolactone -ICD in place (5) Cardiac defibrillator in situ: Code(s): Z95.810 - Presence of automatic (implantable) cardiac defibrillator Status: Acute Assessment and Plan: -chronic (6) Depression with anxiety: Code(s): F41.8 - Other specified anxiety disorders Status: Acute Assessment and Plan: Chronic and stable -Continue abilify (7) Leukocytosis: Code(s): D72.829 - Elevated white blood cell count, unspecified Status: Acute Assessment and Plan: Pt has significant leukocytosis with body aches/night sweats continues to worsen could be from steroid. 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 Await identification Blood culture x2 negative so far Subjective Date/time seen: 10/13/22 13:44 Interval history: Pt is a 27-year-old female here for shortness of breath. Patient states that she does not have much shortness of breath at rest but notices she has dyspnea on exertion. She continues to have a constant wet cough as well and is producing yellow sputum with diffuse muscle aches. She has no chest pain but admits to dysuria as well. We had a long discussion about diabetes and she states that she does not have a primary care physician or an perforator operator oil well but is agreeable to see 1 after discharge. 10/13/2022: Chart reviewed. Feeling better. Shortness of breath on exertion present. Still wheezy. Minimal cough is clearing up now she states. Denies any abdominal pain nausea vomiting. CT scan and chest x-ray findings reviewed with the patient. Review of Systems Review of Systems: All systems reviewed & are unremarkable except as noted in HPI and below Exam Narrative: General: Morbidly obese patient resting comfortably in bed in no acute distress HEENT: normocephalic Neck: supple Neuro: Alert and oriented x4 CV: Regular rate and rhythm, S1-S2 heard Resp: mild end expiratory wheezing present. Prolonged expiration Abd: Soft, non distended. No pain to palpation. Positive bowel sounds Extremities: No swelling, erythema, or pain to palpation. Objective Data Vital Signs Vital Signs: Vital Signs - 24 hr 10/12/22 16:00 10/12/22 14:00 10/12/22 19:44 Temperature 96.4 F L 97.6 F Pulse Rate 85 92 96 Respiratory Rate 20 18 Blood Pressure 105/67 100/58 L Pulse Oximetry 94 97 Oxygen Delivery 10/12/22 20:37 10/13/22 03:04 10/12/22 20:00 Temperature 97.4 F L Pulse Rate 90 95 90 Respiratory Rate 18 20 Blood Pressure 107/70 Pulse Oximetry 96 Oxygen Delivery 10/13/22 00:00 10/13/22 04:00 10/13/22 09:01 Temperature
[2022-10-13 17:29] LABS: Glucose Point of Care 356 mg/dl (65-105)
[2022-10-13] MEDS: INSULIN GLARGINE (*BKC) 100 UNITS/ML 14 UNITS SUB-Q (22:16)
[2022-10-13] MEDS: traZODone HCL 50 MG TABLET PO (22:16)
[2022-10-14] VITALS (11 sets, daily range): BP systolic 96–112; BP diastolic 61–76; PULSE 86–94; RESP 18–22; TEMP 35.9–36.3; O2SAT 96–100
--- NOTE | 2022-10-14 | ECHO_ITS ---
Patient Info Name: Giovanna Mcgarry Age: 27 years : 1995 Gender: Female Ht: 66 in Wt: 301 lbs BSA: 2.60 m2 HR: 98 bpm BP: 102 / 67 mmHg Heart Rhythm: Sinus Rhythm Technical Quality: Poor Exam Date: 10/14/2022 11:09 AM Exam Location: [facility] Patient Status: Inpatient Admit Date: 10/12/2022 Staff Ordering Physician: Luciana Pastrana NP Hunter Skin Diver: Miriam Galaviz RDCS Attending Provider: Jos Armstrong MD Referring Physician: Zeina DUGAN; Exam Type: CA echo dop color flow w con Study Info Indications I50.9 - Heart failure, unspecified Complete two-dimensional, color flow and Doppler transthoracic echocardiogram is performed with contrast to opacify the left ventricle and to improve the deliniation of the left ventricle endocardial borders. Contrast/Agitated Saline Contrast/Ag. Saline: Definity Amount: 6.00 ml Administered By: Miriam Galaviz RDCS Existing IV Access: Yes IV Access Condition: patent with no signs of infiltration Reason for Poor Study: patient body habitus Summary 1. Severe left ventricular dilation with severe global systolic dysfunction. 2. RV dilation with RV systolic dysfunction. 3. Small amount of mitral regurgitation resulting from annular dilation. Left Ventricle Left ventricular chamber dimension is severely enlarged. Left ventricular systolic function is severely reduced, estimated at 15-20%. The left ventricular diastolic function is grade I diastolic dysfunction. Right Ventricle Right ventricular chamber dimension is moderately enlarged. Right ventricular systolic function is reduced. Left Atria Left atrial chamber dimension is normal. Right Atria Right atrial chamber dimension is normal. Aortic Valve The aortic valve is normal. Pulmonic Valve The pulmonic valve is not well visualized. Mitral Valve The mitral valve has normal leaflets. There is trace mitral valve regurgitation. Tricuspid Valve The tricuspid valve leaflets are normal. There is trace tricuspid valve regurgitation. Pericardium/Pleural The pericardium appears normal. Aorta The aortic root size at the sinus of Valsalva is normal. Left Ventricular Outflow Tract Name Value Normal LVOT 2D LVOT Diameter 2.05 cm LVOT Doppler LVOT Peak Gradient 2 mmHg LVOT Mean Gradient 1 mmHg LVOT VTI 9.18 cm LVOT VTI/AV VTI Ratio 0.81 LVOT Stroke Volume 30.25 ml LVOT CO 3.00 l/min LVOT CI 1.15 L/min/m2 Pulmonic Valve Name Value Normal RVOT Doppler RVOT Peak Gradient 2 mmHg PV Doppler
[2022-10-14 04:29] LABS: Glucose Point of Care 222 mg/dl (65-105)
[2022-10-14 06:41] LABS: Basophils Percent Auto 0.2 % (0.2-1.2); Eosinophils Percent Auto 0.1 % (0-4.4); Hematocrit 47.3 % (37.0-47.0); Hemoglobin 14.7 g/dL (12.0-15.0); Immature Granulocyte Absolute 0.14 K/mm3 (0.00-0.031); Immature Granulocyte Percent A 0.8 % (0-0.5); Immature Platelet Fraction Pct 11.6 % (0.9-11.2); Lymphocytes Absolute Auto 3.51 K/mm3 (0.9-3.2); Lymphocytes Percent Auto 19.3 % (18.3-44.2); Mean Corpuscular HGB Conc 31.1 g/dl (32-36); Mean Corpuscular Hemoglobin 23.2 pg (26-34); Mean Corpuscular Volume 74.6 fl (80-100); Monocytes Absolute Auto 1.3 K/mm3 (0.1-0.6); Monocytes Percent Auto 7.2 % (2.6-8.5); Neutrophils Absolute Auto 13.2 K/mm3 (1.3-6.7); Neutrophils Percent Auto 72.4 % (45.5-73.1); Nucleated Red Blood Cells Absolute Auto 0.1 K/mm3 (0.0-0.012); Nucleated Red Blood Cells Perc 0.5 % (0.0-0.2); Platelet Count Result 281 k/mm3 (150-375); Red Blood Count 6.34 M/mm3 (4.2-5.4); Red Cell Distribution Width 22.9 % (11.5-14.5); White Blood Count 18.2 K/mm3 (4.5-10.0)
[2022-10-14 06:51] LABS: Alanine Aminotransferase 31 U/L (6-35); Albumin Level 4.4 g/dL (3.5-5.1); Alkaline Phosphatase 66 U/L (38-126); Anion Gap 9 mmol/L (8-16); Aspartate Amino Transferase 25 U/L (14-36); Bilirubin,Total 0.8 mg/dL (0.2-1.3); Blood Urea Nitrogen 33 mg/dL (7-17); Calcium 9.1 mg/dL (8.4-10.2); Carbon Dioxide 24 mmol/L (22-30); Chloride 99 mmol/L (98-107); Estimated Glomerular Filt Rate > 60; Glucose 204 mg/dL (65-110); Magnesium 2.1 mg/dL (1.6-2.3); Potassium 4.1 mmol/L (3.4-5.0); Sodium 132 mmol/L (137-145)
[2022-10-14 08:32] LABS: Glucose Point of Care 189 mg/dl (65-105)
[2022-10-14] MEDS: FLUTICASONE/SALMETEROL 115-21 MCG INHALER 1 PUFF 2 PUFF INHALATION ×2 (09:35→21:49)
[2022-10-14] MEDS: ENOXAPARIN 40 MG/0.4 ML SYRINGE SUB-Q (10:19)
[2022-10-14] MEDS: SACUBITRIL/VALSARTAN 49-51 MG TABLET 1 TABLET PO (10:19)
[2022-10-14] MEDS: MONTELUKAST SODIUM 10 MG TABLET PO (10:19)
[2022-10-14] MEDS: SPIRONOLACTONE 25 MG TABLET PO (10:19)
[2022-10-14] MEDS: DIGOXIN TAB 125 MCG TABLET PO (10:19)
[2022-10-14] MEDS: BUMETANIDE 1 MG TABLET 2 MG PO (10:22)
[2022-10-14] MEDS: EMPAGLIFLOZIN 25 MG TABLET PO (10:22)
[2022-10-14] MEDS: METOPROLOL SUCCINATE EXT REL 50 MG TABCR PO (10:22)
[2022-10-14] MEDS: ARIPiprazole 10 MG TABLET PO (10:23)
[2022-10-14] MEDS: PERFLUTREN LIPID MICROSPHERES 1.5 ML VIAL DILUTED TO 10 ML TOTAL VOLUME IV PUSH (12:00)
[2022-10-14 12:02] LABS: Glucose Point of Care 190 mg/dl (65-105)
--- NOTE | 2022-10-14 12:49 | P.CDI_ITS ---
CDI Query Clarification Request chronic systolic diastolic. already mentioned in dc summary <Jos Armstrong MD - Last Filed: 10/23/22 07:24> Clarified Diagnosis Clarified Diagnosis: BNP elevated on 10/11/22 lab work. Pt with documented history of CHF. CHF noted on assessment and plan. Pt takes Entresto, Bumex and metoprolol. Please specify type and acuity of heart failure if known. * Acute * Chronic * Acute on Chronic * Unknown * Systolic * Diastolic * Combined Systolic and Diastolic * Unknown <Rain Jacobson RN - Last Filed: 10/14/22 12:53>
[2022-10-14] MEDS: MAGNESIUM SULF 2 GM/WATER 50ML 2 GM/50 ML BAG IVPB (14:29)
[2022-10-14] MEDS: ONDANSETRON INJ 4 MG/2 ML VIAL IV PUSH (14:30)
[2022-10-14] MEDS: DEXAMETHASONE 2 MG TABLET 6 MG PO (14:30)
[2022-10-14] MEDS: MORPHINE SULFATE (*CRX) 2 MG/ML INJ IV PUSH (14:39)
[2022-10-14] MEDS: ALBUTEROL SULFATE NEB 2.5 MG/3 ML INH INHALATION ×2 (14:53→21:49)
[2022-10-14] MEDS: IPRATROPIUM BR 0.02% INH SOLN 0.5 MG/2.5 ML VIAL INHALATION ×2 (14:53→21:49)
[2022-10-14] MEDS: INSULIN ASPART (*BKC) 100 UNITS/ML SUB-Q (17:24)
--- NOTE | 2022-10-14 17:42 | PM.IMPN ---
Progress Note: A&P Assessment and Plan (1) COVID: Code(s): U07.1 - COVID-19 Status: Acute Assessment and Plan: -The patient was diagnosed over week ago and continues to be positive. -continue with Decadron and albuterol -wean 02 in currently off -CTA with no PE. Findings of most psych attenuation suggestive of small airway disease. Sputum culture pending Add doxycycline Change Decadron to oral Add bronchodilator nebs (2) Asthma with exacerbation: Code(s): J45.901 - Unspecified asthma with (acute) exacerbation Status: Acute Assessment and Plan: Pt continues to wheeze -Continue inhalers and Decadron will give a dose of magnesium (3) DM2 (diabetes mellitus, type 2): Code(s): E11.9 - Type 2 diabetes mellitus without complications Status: Acute Assessment and Plan: Last glucose 273 -A1c 9.2--uncontrolled -Continue jardiance, lantus and SSI, may need scheduled insulin -pt not on home insulin, will need at least lantus at discharge -she has no PCP or catcher filter tip and will need referrals at discharge (4) Congestive heart failure: Code(s): I50.9 - Heart failure, unspecified Status: Acute Assessment and Plan: Chronic -continue entresto, jardiance, bumex, metoprolol, dignoxin, and spironolactone -ICD in place echo 10/14/2022 with EF 15-20% severe left ventricular dilatation with severe global systolic dysfunction. Right RV dilation with RV systolic dysfunction grade 1 diastolic dysfunction (5) Cardiac defibrillator in situ: Code(s): Z95.810 - Presence of automatic (implantable) cardiac defibrillator Status: Acute Assessment and Plan: -chronic (6) Depression with anxiety: Code(s): F41.8 - Other specified anxiety disorders Status: Acute Assessment and Plan: Chronic and stable -Continue abilify (7) Leukocytosis: Code(s): D72.829 - Elevated white blood cell count, unspecified Status: Acute Assessment and Plan: Pt has significant leukocytosis with body aches/night sweats continues to worsen could be from steroid. 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 Await identification Blood culture x2 negative so far Subjective Date/time seen: 10/14/22 17:42 Interval history: Pt is a 27-year-old female here for shortness of breath. Patient states that she does not have much shortness of breath at rest but notices she has dyspnea on exertion. She continues to have a constant wet cough as well and is producing yellow sputum with diffuse muscle aches. She has no chest pain but admits to dysuria as well. We had a long discussion about diabetes and she states that she does not have a primary care physician or an catcher filter tip but is agreeable to see 1 after discharge. 10/13/2022: Chart reviewed. Feeling better. Shortness of breath on exertion present. Still wheezy. Minimal cough is clearing up now she states. Denies any abdominal pain nausea vomiting. CT scan and chest x-ray findings reviewed with the patient. 10/14/2022: Refused Decadron this a.m. as it causes burning sensation. Still wheezy and short of breath. Still has cough Review of Systems Review of Systems: All systems reviewed & are unremarkable except as noted in HPI and below Exam Narrative: General: Morbidly obese patient resting comfortably in bed in no acute distress HEENT: normocephalic Neck: supple Neuro: Alert and oriented x4 CV: Regular rate and rhythm, S1-S2 heard Resp: worsened end expiratory wheezing present. Prolonged expiration Abd: Soft, non distended. No pain to palpation. Positive bowel sounds Extremities: No swelling, erythema, or pain to palpation. Objective Data Vital Signs Vital Signs: Vital Signs - 24 hr 10/13/22 21:18 10/13/22 22:00 10/13/22
[2022-10-14 18:31] LABS: Glucose Point of Care 228 mg/dl (65-105)
[2022-10-14] MEDS: DOXYCYCLINE 100 MG/NS 100 ML 100 MG/100 ML BAG IVPB (19:52)
[2022-10-14] MEDS: INSULIN GLARGINE (*BKC) 100 UNITS/ML 14 UNITS SUB-Q (20:20)
[2022-10-14] MEDS: traZODone HCL 50 MG TABLET PO (20:23)
[2022-10-14 23:23] LABS: Glucose Point of Care 279 mg/dl (65-105)
[2022-10-15] VITALS (7 sets, daily range): BP systolic 110; BP diastolic 72; PULSE 80–89; RESP 16–20; TEMP 36.3; O2SAT 98
[2022-10-15] MEDS: ALBUTEROL SULFATE NEB 2.5 MG/3 ML INH INHALATION ×2 (02:19→10:00)
[2022-10-15] MEDS: IPRATROPIUM BR 0.02% INH SOLN 0.5 MG/2.5 ML VIAL INHALATION ×2 (02:19→10:00)
[2022-10-15] MEDS: ONDANSETRON INJ 4 MG/2 ML VIAL IV PUSH (03:08)
[2022-10-15] MEDS: DOXYCYCLINE 100 MG/NS 100 ML 100 MG/100 ML BAG IVPB (06:18)
[2022-10-15 06:44] LABS: Alanine Aminotransferase 35 U/L (6-35); Alkaline Phosphatase 56 U/L (38-126); Anion Gap 8 mmol/L (8-16); Aspartate Amino Transferase 25 U/L (14-36); Bilirubin,Total 1.2 mg/dL (0.2-1.3); Blood Urea Nitrogen 34 mg/dL (7-17); Calcium 8.7 mg/dL (8.4-10.2); Carbon Dioxide 28 mmol/L (22-30); Chloride 98 mmol/L (98-107); Estimated Glomerular Filt Rate 59; Glucose 206 mg/dL (65-110); Magnesium 2.3 mg/dL (1.6-2.3); Potassium 4.1 mmol/L (3.4-5.0); Sodium 134 mmol/L (137-145)
[2022-10-15 06:53] LABS: Basophils Percent Auto 0.1 % (0.2-1.2); Hematocrit 44.5 % (37.0-47.0); Hemoglobin 14.1 g/dL (12.0-15.0); Immature Granulocyte Percent A 0.8 % (0-0.5); Immature Platelet Fraction Pct 11.9 % (0.9-11.2); Lymphocytes Absolute Auto 1.87 K/mm3 (0.9-3.2); Lymphocytes Percent Auto 14.5 % (18.3-44.2); Mean Corpuscular HGB Conc 31.7 g/dl (32-36); Mean Corpuscular Hemoglobin 23.6 pg (26-34); Mean Corpuscular Volume 74.4 fl (80-100); Monocytes Absolute Auto 0.7 K/mm3 (0.1-0.6); Monocytes Percent Auto 5.4 % (2.6-8.5); Neutrophils Absolute Auto 10.2 K/mm3 (1.3-6.7); Neutrophils Percent Auto 79.2 % (45.5-73.1); Nucleated Red Blood Cells Absolute Auto 0.1 K/mm3 (0.0-0.012); Nucleated Red Blood Cells Perc 0.5 % (0.0-0.2); Platelet Count Result 251 k/mm3 (150-375); Red Blood Count 5.98 M/mm3 (4.2-5.4); Red Cell Distribution Width 22.6 % (11.5-14.5); White Blood Count 12.9 K/mm3 (4.5-10.0)
[2022-10-15 08:09] LABS: Glucose Point of Care 198 mg/dl (65-105)
[2022-10-15 08:36] LABS: Platelet Estimate Adequate (Adequate)
[2022-10-15 08:37] LABS: Anisocytosis 1+ (NORMAL); Hypochromasia 1+ (NORMAL); Target Cells 1+ (NORMAL)
[2022-10-15] MEDS: DEXAMETHASONE 2 MG TABLET 6 MG PO (08:45)
[2022-10-15] MEDS: ARIPiprazole 10 MG TABLET PO (08:45)
[2022-10-15] MEDS: DIGOXIN TAB 125 MCG TABLET PO (08:46)
[2022-10-15] MEDS: BUMETANIDE 1 MG TABLET 2 MG PO (08:46)
[2022-10-15] MEDS: EMPAGLIFLOZIN 25 MG TABLET PO (08:50)
[2022-10-15] MEDS: METOPROLOL SUCCINATE EXT REL 50 MG TABCR PO (08:50)
[2022-10-15] MEDS: ENOXAPARIN 40 MG/0.4 ML SYRINGE SUB-Q (08:51)
[2022-10-15] MEDS: MONTELUKAST SODIUM 10 MG TABLET PO (08:51)
[2022-10-15] MEDS: SACUBITRIL/VALSARTAN 49-51 MG TABLET 1 TABLET PO (08:51)
[2022-10-15] MEDS: SPIRONOLACTONE 25 MG TABLET PO (08:52)
[2022-10-15 09:03] LABS: Schistocytes None Seen (NORMAL)
[2022-10-15] MEDS: FLUTICASONE/SALMETEROL 115-21 MCG INHALER 1 PUFF 2 PUFF INHALATION (10:00)
[2022-10-15 12:03] LABS: Glucose Point of Care 330 mg/dl (65-105)
[2022-10-15] MEDS: INSULIN ASPART (*BKC) 100 UNITS/ML SUB-Q (12:06)
--- NOTE | 2022-10-15 12:30 | PM.DS ---
DS: Admitting Diagnosis Discharge Date 10/15/2022 Admitting Diagnosis Shortness of breath DS: Discharge Diagnosis Discharge Diagnosis (1) COVID: Code(s): U07.1 - COVID-19 Status: Acute (2) Asthma with exacerbation: Code(s): J45.901 - Unspecified asthma with (acute) exacerbation Status: Acute (3) DM2 (diabetes mellitus, type 2): Code(s): E11.9 - Type 2 diabetes mellitus without complications Status: Acute (4) Congestive heart failure: Code(s): I50.9 - Heart failure, unspecified Status: Acute (5) Cardiac defibrillator in situ: Code(s): Z95.810 - Presence of automatic (implantable) cardiac defibrillator Status: Acute (6) Depression with anxiety: Code(s): F41.8 - Other specified anxiety disorders Status: Acute (7) Leukocytosis: Code(s): D72.829 - Elevated white blood cell count, unspecified Status: Acute DS: Summary Hospital Course Reason for hospitalization: Pt is a 27-year-old female here for shortness of breath.? Patient states that she does not have much shortness of breath at rest but notices she has dyspnea on exertion.? She continues to have a constant wet cough as well and is producing yellow sputum with diffuse muscle aches.? She has no chest pain but admits to dysuria as well.? We had a long discussion about diabetes and she states that she does not have a primary care physician or an medical record retrieval specialist but is agreeable to see 1 after discharge. Hospital Course: # COVID: -The patient was diagnosed over week ago and continues to be positive. -continue with Decadron and albuterol -wean 02 in currently off -CTA with no PE.? Findings of mild mosaic attenuation suggestive of small airway disease. ? Sputum culture with growth of normal izaiah Add doxycycline with improvement in leukocytosis Change Decadron to oral at discharge to complete 10 days course Add bronchodilator nebs which helped # asthma exacerbation: Pt significantly wheezy on admission improved with Decadron and nebs. -Continue inhalers and Decadron Also received a dose of magnesium during hospital stay # type 2 diabetes mellitus: Blood sugar elevated. -A1c 9.2--uncontrolled -Continue jardiance, lantus and SSI, may need scheduled insulin -pt not on home insulin, no start Lantus lispro at discharge -she has no PCP or medical record retrieval specialist and will need referrals at discharge # congestive heart failure: Chronic systolic and diastolic -continue entresto, jardiance, bumex, metoprolol, dignoxin, and spironolactone -ICD in place ?echo 10/14/2022 with EF 15-20% severe left ventricular dilatation with severe global systolic dysfunction.? Right RV dilation with RV systolic dysfunction grade 1 diastolic dysfunction # cardiac defibrillator in-situ: -chronic # anxiety and depression: Chronic and stable -Continue abilify # leukocytosis: Pt has significant leukocytosis with body aches/night sweats ?continues to worsen could be from steroid. 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 Finalized as normal oropharyngeal izaiah Blood culture x2 negative so far Leukocytosis improving # Abdominal pain with nausea vomiting [address] abdomen was unremarkable. Resolution of symptoms with supportive treatment Time Spent with Patient Time attestation: Total time spent providing and/or coordinating discharge services: 45 minutes Exam Narrative: General: Morbidly obese patient resting comfortably in bed in no acute distress HEENT: normocephalic Neck: supple Neuro: Alert and oriented x4 CV: Regular rate and rhythm, S1-S2 heard Resp: Clear to auscultation no respiratory distress Abd: Soft, non distended. No pain to palpation. Positive bowel sounds Extremities: No swelling, erythema, or pain to palpation. DS: Data Data Completed and Pending Labs on day of discharge:
== END 2022-10-15 15:00 | disposition home or self-care (01) | DRG 137 ==
LOC: ANHED 13:35 → ANH3MEDSUR 15:39
PROVIDERS: Emergency Medicine; Nurse Practitioner; Physician Assistant; Admitting Provider Family Medicine; Emergency Provider Emergency Medicine; Visit Provider Internal Medicine
DX: U07.1 COVID-19 (principal); I50.42 Chronic combined systolic (congestive) and diastolic (congestive) heart failure; J45.901 Unspecified asthma with (acute) exacerbation; E11.9 Type 2 diabetes mellitus without complications; B96.89 Other specified bacterial agents as the cause of diseases classified elsewhere; D72.829 Elevated white blood cell count, unspecified; F41.8 Other specified anxiety disorders; Z87.891 Personal history of nicotine dependence; Z95.810 Presence of automatic (implantable) cardiac defibrillator
CPT/HCPCS: 36415; 71046; 71275; 74176; 80048; 80053; 81001; 82550; 82948; 83036; 83605; 83735; 83880; 84443; 84702; 85025; 85027; 85055; 86140; 87040; 87070; 87205; 87636; 93005; 93970; 94640; 96372; 96374; 96375; 99285; A9270; C8929; G0378; J1100; J1650; J1815; J1940; J2270; J2405; J3475; J8540; Q9957; Q9967

== ENCOUNTER 2022-12-01 18:24 | Emergency (ER) | payer MEDICAID, SELFPAY ==
--- NOTE | ~2022-12-01 | XR_ITS ---
Clinical Indication: Shortness of breath AP and lateral views of the chest: Comparison: 10/11/2022 Findings: The lungs are clear, without evidence of focal consolidation or pleural effusion. Cardiome diastinal silhouette is stable, enlarged, with pacemaker device. Bones and soft tissues are unremarka ble. Impression: Clear lungs. Stable cardiomegaly with pacemaker device. Reviewed, dictated and finalized at location M. MAN CLERK Impression: Clear lungs. Stable cardiomegaly with pacemaker device.
--- NOTE | ~2022-12-01 | CT_ITS ---
Non-contrast Head CT History: Confusion, weakness, blindness in left eye Technique: Axial non-contrast imaging of the brain was performed. Dose reduction technique was used on this scan by utilizing automated exposure control and iterative reconstruction technique. The dose -length product (DLP) was 605.33 mGy-cm. Findings: There is no evidence of intracranial hemorrhage, mass lesion, or acute infarct. Brain par enchyma appears normal. The ventricles and subarachnoid spaces are normal in size. The calvarium ap pears normal. The visualized paranasal sinuses and mastoid air cells are clear. Impression: No significant abnormality seen. Reviewed, dictated and finalized at [facility]. OM FEED CORN OPERATOR Impression: No significant abnormality seen.
--- NOTE | ~2022-12-01 | CT_ITS ---
Clinical Indication: Shortness of breath, weakness CT Scan of the Chest, Abdomen, and Pelvis without Contrast: Technique: Contiguous sections were acquired throughout the chest, abdomen, and pelvis without IV con trast administration. Dose reduction technique was used on this scan by utilizing automated exposure control and iterative reconstruction technique. The dose-length product (DLP) was 1898.15 mGy-cm. COMPARISON: 10/14/2022 and 10/12/2022 Findings: There is no evidence of any significant mediastinal, hilar or axillary lymphadenopathy. There is adan ed cardiomegaly, stable from prior exam. There is no evidence of pleural or pericardial effusion. There is right lower lobe consolidation, somewhat smoothly marginated. Left lung is clear. The liver, spleen, pancreas, gallbladder, adrenals and kidneys are within normal limits. No evidence of aortic aneurysm. No lymphadenopathy. No bowel obstruction or bowel wall thickening. There is no evidence to suggest acute appendicitis. Urinary bladder is unremarkable. No definite adnexal mass seen. Small amount of abdominopelvic ascite s present. Diffuse infiltrative changes of the subcutaneous soft tissues are noted. Bilateral L5 pars interarticularis defects are noted, without subluxation. Impression: Right lower lobe consolidation, suspicious for pneumonia. Pulmonary infarct could be a potential alte rnative consideration in the appropriate clinical setting (if there is high suspicion for pulmonary e mbolus). Stable marked cardiomegaly. Small amount of abdominopelvic ascites, nonspecific. Diffuse infiltrative changes in the subcutaneous soft tissues, also nonspecific. Reviewed, dictated and finalized at [facility]. LATION TECH Impression: Right lower lobe consolidation, suspicious for pneumonia. Pulmonary infarct cou ld be a potential alternative consideration in the appropriate clinical setting (if there is high suspicion for pulmonary embolus). Stable marked cardiomegaly. Small amount of abdominopelvic ascites, nonspecific. Diffuse infiltrative changes in the subcutaneous soft tissues, also nonspecific .
[2022-12-01 18:35] VITALS: BP 102/80; PULSE 94; RESP 28; TEMP 37.1; O2SAT 100
--- NOTE | 2022-12-01 18:35 | ECG_ITS ---
Measurements Intervals [place] Rate: 91 P: 70 UT: 204 QRS: 98 QRSD: 129 T: -24 QT: 400 QTc: 494 Interpretive Statements SINUS RHYTHM BORDERLINE RIGHT AXIS DEVIATION [QRS AXIS > 90] MODERATE INTRAVENTRICULAR CONDUCTION DELAY [110+ ms QRS DURATION] ST DEVIATION AND MODERATE T-WAVE ABNORMALITY, CONSIDER LATERAL ISCHEMIA [-0.1+ mV T- WAVE IN I/aVL/V5/V6] ABNORMAL ECG COMPARED TO ECG 10/11/2022 02:42:13 HEART RATE IS REDUCED/ NO OTHER SIGNIFICANT CHANGE Electronically Signed On 12-02-2022 12:01:03 ASSISTANT CONTROLLER by Shukri Zamarripa M.D.
--- NOTE | 2022-12-01 18:42 | ED.SOB ---
HPI - SOB/Dyspnea General Chief Complaint: Shortness of Breath/Dyspnea <Pj Horvath MD - Last Filed: 12/02/22 13:39> Stated Complaint: ams confusion and weakness x 4 days <Pj Horvath MD - Last Filed: 12/02/22 13:39> Time Seen by Provider: 12/01/22 18:41 <Pj Horvath MD - Last Filed: 12/02/22 13:39> Source: patient and EMS <Pj Horvath MD - Last Filed: 12/02/22 13:39> Mode of arrival: EMS <Pj Horvath MD - Last Filed: 12/02/22 13:39> Limitations: clinical condition <Pj Horvath MD - Last Filed: 12/02/22 13:39> History of Present Illness HPI Narrative: 27 years old -[place] female, morbidly obese came by ambulance from [facility] complaining of shortness of breath and wheezing. For unknown duration. Patient was at [facility] 1 week ago got discharged on 4 days ago, to go to assisted living, 24 hours later signed herself out. Then her sister took her to [facility] emergency room, 1 hour later signed herself out. Patient lives with her sister off and on at [facility] for the last 9 months. Patient does not know why she is here. I was able to speak to her sister on the phone who told me that patient have trouble to see with her left eye over the last 24 hours, seeing red color only, unable to eat or to drink or to take care of herself. assisted placement was discussed numerous of time before. History of COVID infection, asthma, congestive heart failure, diabetes, depression and anxiety and morbid obesity. <Pj Horvath MD - Last Filed: 12/02/22 13:39> Related Data Home Medications: Home Medications Medication Instructions Recorded Confirmed aripiprazole 10 mg tablet 10 mg PO DAILY 09/07/22 10/11/22 budesonide-formoterol HFA 160 2 puff inhalation DAILY 09/07/22 10/11/22 mcg-4.5 mcg/actuation aerosol inhaler bumetanide 2 mg tablet 2 mg PO DAILY 09/07/22 10/11/22 digoxin 125 mcg (0.125 mg) tablet 125 mcg PO DAILY 09/07/22 10/11/22 epinephrine 0.3 mg/0.3 mL 09/07/22 injection, auto-injector metoprolol succinate 50 mg 50 mg PO DAILY 09/07/22 10/11/22 tablet,extended release 24 hr sacubitril 49 mg-valsartan 51 mg 1 tablet PO DAILY 09/07/22 10/11/22 tablet empagliflozin 25 mg tablet 25 mg PO DAILY 10/11/22 10/11/22 (Jardiance) montelukast 10 mg tablet 10 mg PO DAILY 10/11/22 10/11/22 (Singulair) spironolactone 25 mg tablet 25 mg PO DAILY 10/11/22 10/11/22 trazodone 50 mg tablet 50 mg PO HS 10/11/22 10/11/22 allopurinol 100 mg tablet 100 mg PO DAILY 12/02/22 aspirin 325 mg tablet,delayed 325 mg PO DAILY 12/02/22 release (Ecotrin) levetiracetam 500 mg/5 mL 1,000 mg BID 12/02/22 intravenous solution (Keppra) midodrine 5 mg tablet 5 mg PO TID 12/02/22 sevelamer carbonate 800 mg tablet 800 mg PO TID 12/02/22 spironolactone 25 mg tablet 25 mg PO DAILY 12/02/22 torsemide 10 mg tablet 10 mg PO BID 12/02/22 <Pj Horvath MD - Last Filed: 12/02/22 13:39> Allergies/Adverse Reactions: Allergies Allergy/AdvReac Type Severity Reaction Status Date / Time bee venom protein (honey bee) Allergy Swelling Verified 10/11/22 16:25 [bees] dog dander Allergy Dyspnea / Verified 10/11/22 16:25 SOB mushroom Allergy Swelling Verified 10/11/22 16:25 <Pj Horvath MD - Last Filed: 12/02/22 13:39> [facility] Past Medical History Medical History: Medical History (Updated 12/02/22 @ 02:43 by Main Guajardo MD) Cardiac defibrillator in situ Congestive heart failure Depression with anxiety DM2 (diabetes mellitus, type 2) <Pj Horvath MD - Last Filed: 12/02/22 13:39> Surgical History Surgical History: Surgical History (Updated 10/11/22 @ 13:52 by Luciana Pastrana NP) H/O section times 2 <Pj Horvath MD - Last Filed: 12/02/22 13:39> Family History Family History: Family History (Updated 10/11/22 @ 13:53 by Luciana Pastrana NP) Father Diabetes me
[2022-12-01 19:37] LABS: Alveolar/Arterial O2 Gradient 31.7 mmHg; Base Excess ABG 11.2 mEq/l (+/-2.0); Fractional Inspired Oxygen 21 %; HCO3 ABG 36.3 mEq/l (22.0-26.0); Oxygen Saturation ABG 92.3 % (95.0-100.0); PCO2 ABG 48.9 mmHg (35.0-45.0); PO2 ABG 59.5 mmHg (80.0-100.0); PO2 FiO2 Ratio Arterial Blood 2.83 %; pH ABG 7.489 (7.350-7.450)
[2022-12-01 19:40] LABS: Device ROOM AIR; Modified Allen's Test Pass; Site Drawn RIGHT RADIAL
[2022-12-01 21:33] LABS: Basophils Absolute Auto 0.1 K/mm3 (0.0-0.1); Basophils Percent Auto 1.1 % (0.2-1.2); Eosinophils Absolute Auto 0.1 K/mm3 (0-0.3); Eosinophils Percent Auto 0.8 % (0-4.4); Hematocrit 38.3 % (37.0-47.0); Hemoglobin 12.1 g/dL (12.0-15.0); Immature Granulocyte Absolute 0.05 K/mm3 (0.00-0.031); Immature Granulocyte Percent A 0.6 % (0-0.5); Immature Platelet Fraction Pct 12.4 % (0.9-11.2); Lymphocytes Absolute Auto 1.79 K/mm3 (0.9-3.2); Lymphocytes Percent Auto 19.9 % (18.3-44.2); Mean Corpuscular HGB Conc 31.6 g/dl (32-36); Mean Corpuscular Hemoglobin 23.9 pg (26-34); Mean Corpuscular Volume 75.7 fl (80-100); Monocytes Absolute Auto 0.9 K/mm3 (0.1-0.6); Monocytes Percent Auto 9.9 % (2.6-8.5); Neutrophils Absolute Auto 6.1 K/mm3 (1.3-6.7); Neutrophils Percent Auto 67.7 % (45.5-73.1); Nucleated Red Blood Cells Absolute Auto 0.1 K/mm3 (0.0-0.012); Nucleated Red Blood Cells Perc 0.6 % (0.0-0.2); Platelet Count Result 333 k/mm3 (150-375); Red Blood Count 5.06 M/mm3 (4.2-5.4); Red Cell Distribution Width 22.3 % (11.5-14.5)
[2022-12-01 21:43] LABS: INR 1.5; Partial Thromboplastin Time 30.9 SECONDS (22.3-36.8); Prothrombin Time 17.3 Seconds (11.1-14.7)
[2022-12-01 21:50] LABS: Platelet Estimate Adequate (Adequate)
[2022-12-01 21:51] LABS: Anisocytosis 3+ (NORMAL); Hypochromasia 1+ (NORMAL); Schistocytes None Seen (NORMAL)
[2022-12-01 22:00] LABS: Alanine Aminotransferase 118 U/L (6-35); Albumin Level 3.5 g/dL (3.5-5.1); Alkaline Phosphatase 118 U/L (38-126); Anion Gap 7 mmol/L (8-16); Aspartate Amino Transferase 82 U/L (14-36); Bilirubin,Total 2.9 mg/dL (0.2-1.3); Blood Urea Nitrogen 103 mg/dL (7-17); Calcium 9.1 mg/dL (8.4-10.2); Carbon Dioxide 39 mmol/L (22-30); Chloride 87 mmol/L (98-107); Estimated CRCL calculation 39 ml/min; Estimated Glomerular Filt Rate 24; Glucose 137 mg/dL (65-110); Potassium 3.4 mmol/L (3.4-5.0); Sodium 133 mmol/L (137-145)
[2022-12-01 22:07] LABS: NT Pro B Type Natriuretic Pept 8700 pg/mL (19.9-100)
[2022-12-01 22:22] LABS: SARS-CoV-2 RNA PCR Negative
[2022-12-01 23:15] VITALS: BP 121/75; PULSE 94; RESP 28
[2022-12-02] VITALS (63 sets, daily range): BP systolic 70–121; BP diastolic 44–90; PULSE 95–110; RESP 10–37; TEMP 36.5–36.9; O2SAT 91–100
[2022-12-02 00:01] LABS: SPREG INTERNAL CONTROL Positive; Serum Qual hCG Negative
[2022-12-02 02:41] LABS: Appearance Urine Clear (Clear); Bilirubin Urine Negative (Negative); Blood Urine Trace-intact (Negative); Color Urine Yellow (Yellow); Glucose Urine UA Trace mg/dL (Negative); Ketones Urine Negative (Negative); Leukocyte Esterase Ur Negative LEU/UL (Negative); Nitrate Urine Negative (Negative); Protein Urine Negative (Negative); Urobilinogen Urine 0.2 mg/dL (<2.0); pH Urine 5.5 (5.0-9.0)
[2022-12-02 03:02] LABS: Influenza A QL RT-PCR Negative (Negative); Influenza B QL RT-PCR Negative (Negative)
[2022-12-02 03:16] LABS: Mucus Urine Rare /lpf; RBC Urine 0-2 /hpf (0-2); Squamous Epithelial Cell Urine Rare /hpf (Few)
[2022-12-02 03:21] LABS: Add Urine Microscopic? YES
[2022-12-02] MEDS: ALBUTEROL SULFATE NEB 2.5 MG/3 ML INH 5 MG INHALATION (04:06)
--- NOTE | 2022-12-02 04:20 | PC.NURSE ---
Patient has been accepted to [facility] (per [facility]). Dr. Locke, Hospitalist at [facility] is accepting physician. Hoping that later today, after discharges, they will have a bed available.
[2022-12-02] MEDS: SODIUM CHLORIDE 0.9% IV 500 ML 999 ML IV CONT (07:27)
[2022-12-02] MEDS: NOREPINEPHRINE 8 MG/D5W 250 ML 8 MG/250 ML BAG 9.38 MG IV CONT (08:30)
--- NOTE | 2022-12-02 09:58 | PC.NURSE ---
Patient continues to take blood pressure cuff off and is restless on ER stretcher. Patient to be moved to hospital stretcher for comfort.
[2022-12-02 12:47] LABS: Glucose Point of Care 167 mg/dl (65-105)
[2022-12-02] MEDS: ASPIRIN 81 MG CHEWABLE TABLET 324 MG PO (13:03)
[2022-12-02] MEDS: PANTOPRAZOLE SODIUM IV 40 MG VIAL IV PUSH (13:04)
[2022-12-02] MEDS: levETIRAcetam 500MG/NACL 100ML 500 MG/100 ML BAG 400 MG IVPB (13:05)
--- NOTE | 2022-12-02 13:46 | PC.NURSE ---
Patient received bed at [facility]: bed 4058 Called [phone] for report
[2022-12-02] MEDS: CENTRAL LINE FLUSH 10 ML IV PUSH (14:25)
--- NOTE | 2022-12-02 16:36 | PC.NURSE ---
Levophed drip still infusing at the time patient left the ED via EMS.
== END 2022-12-02 16:36 | disposition short-term general hospital (02) ==
PROVIDERS: Emergency Medicine; Emergency Provider Emergency Medicine
DX: I42.9 Cardiomyopathy, unspecified (principal); J18.9 Pneumonia, unspecified organism; R06.00 Dyspnea, unspecified; H53.9 Unspecified visual disturbance; R79.89 Other specified abnormal findings of blood chemistry; Z20.822 Contact with and (suspected) exposure to COVID-19; I50.9 Heart failure, unspecified; E66.01 Morbid (severe) obesity due to excess calories; Z68.43 Body mass index [BMI] 50.0-59.9, adult; F41.8 Other specified anxiety disorders; Z95.810 Presence of automatic (implantable) cardiac defibrillator; Z86.16 Personal history of COVID-19; Z87.891 Personal history of nicotine dependence; Z79.82 Long term (current) use of aspirin; R53.1 Weakness; I45.9 Conduction disorder, unspecified; R94.31 Abnormal electrocardiogram [ECG] [EKG]
CPT/HCPCS: 36415; 36556; 36600; 70450; 71046; 71250; 74176; 80053; 81001; 82805; 82948; 83880; 84484; 84703; 85025; 85055; 85610; 85730; 87040; 87077; 87086; 87186; 87502; 93005; 94640; 96361; 96365; 96366; 96367; 96368; 96375; 99291; A9270; C1751; C9113; J0456; J0696; J1953; J3370; J7040; U0003; U0005